=== PATIENT | male | born 1935 | race Caucasian/White ===

== ENCOUNTER 2016-04-01 17:07 | Inpatient (IN) | payer OTHER ==
[~2016-04-01] VITALS: Ht 180.3 cm; Wt 69.5 kg
[2016-04-01] MEDS ORDERED: BISACODYL 10 MG SUPP RECTAL PRN (20:20)
[2016-04-01] MEDS ORDERED: SALINE FLUSH 10 ML FLUSH PRN (20:20)
[2016-04-01] MEDS ORDERED: ACETAMINOPHEN 325 MG TAB PO PRN (20:20)
[2016-04-01] MEDS ORDERED: MAG HYDROX 30 ML UDC PO PRN (20:20)
[2016-04-01] MEDS ORDERED: BISACODYL EC 5 MG TAB PO PRN (20:20)
[2016-04-01] MEDS ORDERED: ALU/MAG/SIM 30 ML UDC PO PRN (20:20)
[2016-04-01 23:15] VITALS: BP_SYST 128; BP_SYST 132; RESP 16; TEMP 97.7
[2016-04-02 00:35] VITALS: Ht 180.3 cm; Wt 69.5 kg
[2016-04-02] MEDS: PIPERACIL/TAZO 3.375GM/50ML 50 ML IV SCH ×2 (01:00→05:43)
[2016-04-02 04:05] VITALS: BP_SYST 156; RESP 16; TEMP 95.9
[2016-04-02] MEDS: SODIUM CHLORIDE 0.9% FLUSH BAG 500 ML IV SCH (05:40)
[2016-04-02] MEDS ORDERED: FAMOTIDINE 20 MG INJ IV SCH (08:00)
[2016-04-02 09:14] VITALS: BP_SYST 130; RESP 16; TEMP 97
[2016-04-02] MEDS: ENOXAPARIN 40 MG/0.4 ML SYR SUBQ SCH (09:15)
[2016-04-02] MEDS: SALINE FLUSH 10 ML FLUSH SCH ×2 (09:15→21:16)
[2016-04-02 10:50] VITALS: BP_SYST 142; RESP 18; TEMP 96.9
[2016-04-02] MEDS ORDERED: MAG HYDROX 30 ML UDC PO PRN (11:40)
[2016-04-02] MEDS ORDERED: KCL CR 20 MEQ TAB PO ONE (11:45)
[2016-04-02] MEDS: CLOPIDOGREL 75 MG TAB PO SCH (12:22)
[2016-04-02] MEDS: SERTRALINE 100 MG TAB PO SCH (12:23)
[2016-04-02] MEDS: CHOLECALCIFEROL 1,000 UNITS TAB PO SCH (12:23)
[2016-04-02] MEDS: amLODIPine 5 MG TAB PO SCH (12:23)
[2016-04-02] MEDS: Losartan 50 MG TAB PO SCH (12:24)
[2016-04-02] MEDS ORDERED: FLUTICASONE 0.05% NA BTL NARE EACH SCH (14:41)
[2016-04-02 15:04] VITALS: BP_SYST 136; RESP 18; TEMP 97.1
[2016-04-02] MEDS: SACCHA BOULARDII 250MG CAP PO SCH ×2 (15:48→21:18)
[2016-04-02] MEDS: AMOXICILLIN/CLAV 875 MG TAB PO SCH (17:28)
[2016-04-02 19:46] VITALS: BP_SYST 140; RESP 18; TEMP 96.9
[2016-04-02] MEDS: KCL CR 20 MEQ TAB PO SCH (21:17)
[2016-04-02] MEDS: METOPROLOL TART 25 MG TAB PO SCH (21:17)
[2016-04-02] MEDS: FLUTICASONE 0.05% NA BTL NARE EACH SCH (21:17)
[2016-04-02] MEDS: FAMOTIDINE 20 MG TAB PO SCH (21:18)
[2016-04-02] MEDS: TAMSULOSIN 0.4 MG CAP PO SCH (21:18)
[2016-04-02] MEDS: ROSUVASTATIN 5 MG TAB PO SCH (21:18)
[2016-04-03] VITALS (9 sets, daily range): BP systolic 128–154; RESP 16–18; TEMP 96.6–98.3
[2016-04-03] MEDS: SODIUM CHLORIDE 0.9% FLUSH BAG 500 ML IV SCH (05:13)
[2016-04-03] MEDS: AMOXICILLIN/CLAV 875 MG TAB PO SCH ×2 (08:38→16:55)
[2016-04-03] MEDS: MULTIVITS/MINERALS (THERAGRAN M) TAB PO SCH (08:39)
[2016-04-03] MEDS: CLOPIDOGREL 75 MG TAB PO SCH (08:39)
[2016-04-03] MEDS: METOPROLOL TART 25 MG TAB PO SCH ×2 (08:40→20:49)
[2016-04-03] MEDS: amLODIPine 5 MG TAB PO SCH (08:41)
[2016-04-03] MEDS: FAMOTIDINE 20 MG TAB PO SCH ×2 (08:42→20:54)
[2016-04-03] MEDS: SERTRALINE 100 MG TAB PO SCH (08:42)
[2016-04-03] MEDS: SACCHA BOULARDII 250MG CAP PO SCH ×3 (08:43→20:49)
[2016-04-03] MEDS: Losartan 50 MG TAB PO SCH (08:43)
[2016-04-03] MEDS: CHOLECALCIFEROL 1,000 UNITS TAB PO SCH (08:45)
[2016-04-03] MEDS: KCL CR 20 MEQ TAB PO SCH ×2 (08:45→20:49)
[2016-04-03] MEDS: ENOXAPARIN 40 MG/0.4 ML SYR SUBQ SCH (08:45)
[2016-04-03] MEDS: FLUTICASONE 0.05% NA BTL NARE EACH SCH ×2 (08:46→20:48)
[2016-04-03] MEDS: SALINE FLUSH 10 ML FLUSH SCH ×2 (08:46→20:47)
[2016-04-03] MEDS: ACETAMINOPHEN 500 MG TAB PO SCH ×2 (11:03→15:55)
[2016-04-03] MEDS: TAMSULOSIN 0.4 MG CAP PO SCH (20:49)
[2016-04-03] MEDS: TRAZODONE 50 MG TAB PO SCH (20:49)
[2016-04-03] MEDS: ROSUVASTATIN 5 MG TAB PO SCH (20:54)
[2016-04-04] MEDS: ACETAMINOPHEN 500 MG TAB PO SCH ×3 (00:19→16:55)
[2016-04-04 03:00] VITALS: BP_SYST 118; RESP 16; TEMP 96.8
[2016-04-04] MEDS: SODIUM CHLORIDE 0.9% FLUSH BAG 500 ML IV SCH (06:00)
[2016-04-04 08:12] VITALS: BP_SYST 126; RESP 16; TEMP 97
[2016-04-04] MEDS: SERTRALINE 100 MG TAB PO SCH (09:00)
[2016-04-04] MEDS: ENOXAPARIN 40 MG/0.4 ML SYR SUBQ SCH (09:00)
[2016-04-04] MEDS: FLUTICASONE 0.05% NA BTL NARE EACH SCH ×2 (10:15→20:29)
[2016-04-04] MEDS: SALINE FLUSH 10 ML FLUSH SCH ×2 (10:15→20:00)
[2016-04-04] MEDS: KCL CR 20 MEQ TAB PO SCH ×2 (10:16→20:29)
[2016-04-04] MEDS: Losartan 50 MG TAB PO SCH (10:16)
[2016-04-04] MEDS: AMOXICILLIN/CLAV 875 MG TAB PO SCH ×2 (10:17→16:54)
[2016-04-04] MEDS: FAMOTIDINE 20 MG TAB PO SCH ×2 (10:17→20:29)
[2016-04-04] MEDS: CHOLECALCIFEROL 1,000 UNITS TAB PO SCH (10:17)
[2016-04-04] MEDS: amLODIPine 5 MG TAB PO SCH (10:19)
[2016-04-04] MEDS: MULTIVITS/MINERALS (THERAGRAN M) TAB PO SCH (10:19)
[2016-04-04] MEDS: METOPROLOL TART 25 MG TAB PO SCH ×2 (10:19→20:30)
[2016-04-04] MEDS: CLOPIDOGREL 75 MG TAB PO SCH (10:20)
[2016-04-04] MEDS: SACCHA BOULARDII 250MG CAP PO SCH ×3 (10:20→20:29)
[2016-04-04 11:53] VITALS: BP_SYST 122; RESP 18; TEMP 97.2
[2016-04-04 15:00] VITALS: BP_SYST 114; RESP 18; TEMP 97.2
[2016-04-04 19:00] VITALS: BP_SYST 168; RESP 18; TEMP 97
[2016-04-04] MEDS: ROSUVASTATIN 5 MG TAB PO SCH (20:29)
[2016-04-04] MEDS: TAMSULOSIN 0.4 MG CAP PO SCH (20:29)
[2016-04-04] MEDS: TRAZODONE 50 MG TAB PO SCH (20:29)
[2016-04-05] VITALS (7 sets, daily range): BP systolic 116–170; RESP 18; TEMP 97.5–98.2
[2016-04-05] MEDS: ACETAMINOPHEN 500 MG TAB PO SCH ×4 (00:05→23:07)
[2016-04-05] MEDS: SODIUM CHLORIDE 0.9% FLUSH BAG 500 ML IV SCH (04:43)
[2016-04-05] MEDS: KCL CR 20 MEQ TAB PO SCH ×3 (09:00→20:49)
[2016-04-05] MEDS: FLUTICASONE 0.05% NA BTL NARE EACH SCH ×2 (09:15→20:49)
[2016-04-05] MEDS: SALINE FLUSH 10 ML FLUSH SCH ×2 (09:15→20:49)
[2016-04-05] MEDS: MULTIVITS/MINERALS (THERAGRAN M) TAB PO SCH (09:17)
[2016-04-05] MEDS: SERTRALINE 100 MG TAB PO SCH (09:17)
[2016-04-05] MEDS: CLOPIDOGREL 75 MG TAB PO SCH (09:17)
[2016-04-05] MEDS: Losartan 50 MG TAB PO SCH (09:17)
[2016-04-05] MEDS: METOPROLOL TART 25 MG TAB PO SCH (09:18)
[2016-04-05] MEDS: CHOLECALCIFEROL 1,000 UNITS TAB PO SCH (09:18)
[2016-04-05] MEDS: AMOXICILLIN/CLAV 875 MG TAB PO SCH ×2 (09:18→17:25)
[2016-04-05] MEDS: FAMOTIDINE 20 MG TAB PO SCH ×2 (09:18→20:49)
[2016-04-05] MEDS: amLODIPine 5 MG TAB PO SCH (09:18)
[2016-04-05] MEDS: SACCHA BOULARDII 250MG CAP PO SCH ×3 (09:18→20:49)
[2016-04-05] MEDS: ENOXAPARIN 40 MG/0.4 ML SYR SUBQ SCH (09:19)
[2016-04-05] MEDS: TAMSULOSIN 0.4 MG CAP PO SCH (20:49)
[2016-04-05] MEDS: ROSUVASTATIN 5 MG TAB PO SCH (20:49)
[2016-04-05] MEDS: TRAZODONE 50 MG TAB PO SCH (20:50)
[2016-04-05] MEDS: Carvedilol 6.25 MG TAB PO SCH (21:23)
[2016-04-06 04:27] VITALS: BP_SYST 148; RESP 18; TEMP 97
[2016-04-06] MEDS: SODIUM CHLORIDE 0.9% FLUSH BAG 500 ML IV SCH (06:00)
[2016-04-06] MEDS ORDERED: ACETAMINOPHEN 325 MG TAB PO PRN (07:40)
[2016-04-06 08:03] VITALS: BP_SYST 154; RESP 16; TEMP 97.2
[2016-04-06] MEDS ORDERED: MISSING DOSE XX ONE (08:35)
[2016-04-06] MEDS: ENOXAPARIN 40 MG/0.4 ML SYR SUBQ SCH (08:38)
[2016-04-06] MEDS: KCL CR 20 MEQ TAB PO SCH ×2 (08:38→20:42)
[2016-04-06] MEDS: FAMOTIDINE 20 MG TAB PO SCH ×2 (08:40→20:42)
[2016-04-06] MEDS: CLOPIDOGREL 75 MG TAB PO SCH (08:40)
[2016-04-06] MEDS: AMOXICILLIN/CLAV 875 MG TAB PO SCH ×2 (08:40→16:00)
[2016-04-06] MEDS: SACCHA BOULARDII 250MG CAP PO SCH ×3 (08:40→20:42)
[2016-04-06] MEDS: CHOLECALCIFEROL 1,000 UNITS TAB PO SCH (08:40)
[2016-04-06] MEDS: amLODIPine 10 MG TAB PO SCH (08:40)
[2016-04-06] MEDS: MULTIVITS/MINERALS (THERAGRAN M) TAB PO SCH (08:40)
[2016-04-06] MEDS: Losartan 50 MG TAB PO SCH (08:40)
[2016-04-06] MEDS: FLUTICASONE 0.05% NA BTL NARE EACH SCH ×2 (08:41→20:42)
[2016-04-06] MEDS: SALINE FLUSH 10 ML FLUSH SCH ×2 (08:41→19:52)
[2016-04-06] MEDS: SERTRALINE 100 MG TAB PO SCH (09:37)
[2016-04-06] MEDS: Carvedilol 6.25 MG TAB PO SCH ×2 (09:37→20:42)
[2016-04-06 10:46] VITALS: BP_SYST 172; RESP 18; TEMP 97.4
[2016-04-06] MEDS: HCTZ 25 MG TAB PO SCH (12:53)
[2016-04-06 15:25] VITALS: BP_SYST 156; RESP 18; TEMP 97.6
[2016-04-06 20:32] VITALS: BP_SYST 142; RESP 16; TEMP 97.9
[2016-04-06] MEDS: ROSUVASTATIN 5 MG TAB PO SCH (20:42)
[2016-04-06] MEDS: TAMSULOSIN 0.4 MG CAP PO SCH (20:42)
[2016-04-06] MEDS: TRAZODONE 50 MG TAB PO SCH (20:42)
[2016-04-06 23:47] VITALS: BP_SYST 130; RESP 16; TEMP 96.6
[2016-04-07 02:25] VITALS: BP_SYST 161; RESP 16; TEMP 97.6
[2016-04-07] MEDS: SODIUM CHLORIDE 0.9% FLUSH BAG 500 ML IV SCH (05:28)
[2016-04-07 07:53] VITALS: BP_SYST 140; RESP 18; TEMP 97
[2016-04-07] MEDS: Losartan 50 MG TAB PO SCH (08:45)
[2016-04-07] MEDS: SALINE FLUSH 10 ML FLUSH SCH (08:45)
[2016-04-07] MEDS: CLOPIDOGREL 75 MG TAB PO SCH (08:45)
[2016-04-07] MEDS: CHOLECALCIFEROL 1,000 UNITS TAB PO SCH (08:45)
[2016-04-07] MEDS: FAMOTIDINE 20 MG TAB PO SCH (08:45)
[2016-04-07] MEDS: HCTZ 25 MG TAB PO SCH (08:46)
[2016-04-07] MEDS: MULTIVITS/MINERALS (THERAGRAN M) TAB PO SCH (08:46)
[2016-04-07] MEDS: AMOXICILLIN/CLAV 875 MG TAB PO SCH (08:46)
[2016-04-07] MEDS: amLODIPine 10 MG TAB PO SCH (08:46)
[2016-04-07] MEDS: SACCHA BOULARDII 250MG CAP PO SCH (08:46)
[2016-04-07] MEDS: KCL CR 20 MEQ TAB PO SCH (08:46)
[2016-04-07] MEDS: ENOXAPARIN 40 MG/0.4 ML SYR SUBQ SCH (08:47)
[2016-04-07] MEDS: FLUTICASONE 0.05% NA BTL NARE EACH SCH (08:47)
[2016-04-07] MEDS: SERTRALINE 100 MG TAB PO SCH (08:47)
[2016-04-07] MEDS: Carvedilol 6.25 MG TAB PO SCH (08:47)
[2016-04-07 11:06] VITALS: BP_SYST 152; RESP 20; TEMP 98.8
[2016-04-07 12:51] VITALS: BP_SYST 152; RESP 20; TEMP 98.8
== END 2016-04-07 14:36 | DRG 57 ==
LOC: ENRESERV → ENRESERVTM → ENRESERVDT → ER 17:07 → ENPENDDIS 20:20 → EMR 20:20 → 4THE 22:10
PROVIDERS: ADMIT Internal Medicine; ATTEND Internal Medicine
DX: I69.351 Hemiplegia and hemiparesis following cerebral infarction affecting right dominant side (principal); B96.89 Other specified bacterial agents as the cause of diseases classified elsewhere; I11.0 Hypertensive heart disease with heart failure; I50.42 Chronic combined systolic (congestive) and diastolic (congestive) heart failure; Z91.81 History of falling; E78.5 Hyperlipidemia, unspecified; J01.00 Acute maxillary sinusitis, unspecified; E87.6 Hypokalemia; D64.9 Anemia, unspecified; F32.9 Major depressive disorder, single episode, unspecified; F09 Unspecified mental disorder due to known physiological condition; Z86.711 Personal history of pulmonary embolism; Z79.02 Long term (current) use of antithrombotics/antiplatelets; Z79.82 Long term (current) use of aspirin
CPT/HCPCS: 36415; 70450; 71010; 80048; 80053; 81001; 82553; 83735; 84132; 84484; 85025; 85610; 85730; 87040; 87088; 93005; 93306; 93880; 94799; 99223; 99232; 99233; 99239